=== PATIENT | female | born 1955 | race Caucasian/White ===

== ENCOUNTER → 2021-01-31 | Outpatient (CLI) | payer MEDICARE, OTHER ==
[~2021-01-31] MED LIST: CITA40TA17 PO; LANTUS SQ; METF-438 PO; SIMV-45 PO
== END | disposition home or self-care (01) ==
LOC: CARD DIAG 09:05
PROVIDERS: ATTEND Nurse Practitioner
DX: I34.8 Other nonrheumatic mitral valve disorders (principal); Z82.49 Family history of ischemic heart disease and other diseases of the circulatory system
CPT/HCPCS: 93306

== ENCOUNTER 2023-03-13 09:58 | Emergency (ER) | payer MEDICARE, OTHER ==
[~2023-03-13] VITALS: Ht 160 cm; Wt 107.6 kg
[2023-03-13] MEDS ORDERED: oxyCODONE/APAP 5-325mg tablet PO ONE (13:20)
[2023-03-13] MEDS ORDERED: OXYC-145 PO (14:46)
[2023-03-13 15:10] VITALS: BP 155/84; PULSE 88; RESP 16; TEMP 97.8; O2SAT 97
== END 2023-03-13 15:00 | disposition home or self-care (01) ==
LOC: ER 09:59
DX: M25.561 Pain in right knee (principal); E11.9 Type 2 diabetes mellitus without complications; Z79.899 Other long term (current) drug therapy; Z79.84 Long term (current) use of oral hypoglycemic drugs; Z98.890 Other specified postprocedural states
CPT/HCPCS: 73564; 99283

== ENCOUNTER 2024-09-23 09:50 | Emergency (ER) | payer MEDICARE ==
[~2024-09-23] VITALS: Ht 160 cm; Wt 82.2 kg
[~2024-09-23 09:50] MED LIST changes: +OXYC-145 PO
[2024-09-23 09:52] VITALS: TEMP 97.6
--- NOTE | 2024-09-23 09:59 | Physician Documentation ---
History of Present Illness Chief Complaint: Abdominal Pain Stated Complaint: ABD PAIN Primary Medical Doctor: DR. BREEN HPI 68-year-old female presents to the ED with a complaint of midepigastric pain for the last month. Addition she complains of left-sided chest pain for one week. She denies any shortness of breath nausea vomiting or any radiating chest Day of Onset: Sep 23, 2024 Medication Reconciliation Allergies: Coded Allergies: No Known Allergies (Unverified , 03/13/23) Scheduled Citalopram Hydrobromide (Citalopram HBr), 1 TAB PO DAILY, (Reported) Insulin Glargine,Hum.rec.anlog (Lantus Solostar), 50 UNITS SQ HS, (Reported) Metformin HCl (Metformin HCl), 1 TAB PO HS, (Reported) Simvastatin (Simvastatin), 1 TAB PO HS, (Reported) Scheduled PRN Oxycodone HCl/Acetaminophen (Percocet 5-325 mg Tablet), 1 TAB PO TID PRN PRN for knee pain Past Medical History Past Medical History: Diabetes Past Surgical History: appendectomy Patient History: (CABG) Coronary artery bypass grafting FATHER, , Age: 60 years and older (CHF) Congestive heart failure FATHER, , Age: 60 years and older (DM Type1) Diabetes mellitus type 1 MOTHER, , Age: 62, Not a twin Alcohol Use: None Lives In: Home Review of Systems All Other Systems at this time: Reviewed and Negative Physical Exam Vital Signs: Temperature: 97.6, Source: Temporal, Heart Rate: 94, Respiratory Rate: 15, BP: 176/80, Pulse Oximetry: 99, Weight: 82.150 Physical Exam General: Alert, no apparent distress. HEENT: PERRL, EOMI, no injection, moist mucous membranes. Neck: Full range of motion. Respiratory: Lungs clear, no respiratory distress. Chest: No accessory muscle use. Cardiovascular: Regular rate and rhythm, no murmurs. Gastrointestinal: Soft, nontender, nondistended. Bowels sounds present. Extremities: Normal range of motion, no deformity. Neurologic: Oriented x4. Psychiatric: Normal mood and affect. Skin: Normal color, warm and dry. No edema, no ecchymosis. Medical Decision Making Findings 68 year old female with nonspecific chest and abdominal pain but unremarkable exam. Workup similarly unremarkable other than for mild hypokalemia, including CT abdomen/pelvis which did not demonstrate acute findings that would explain her pain. Counseled, reassured, discharged with return precautions. Differential Dx:Considerations: Include: Angina/RI, Aortic dissection, Appendicitis, Bowel obstruction, Cholangitis, Cholelithasis, Esophagitis, Gastritis/PUD, GI hemorrhage, Hernia, Hepatitis, Inflammatory BD, Ischemic bowel , Pancreatitis, Urinary tract infection Departure Disposition: HOME / SELF CARE / HOMELESS Impression: Primary Impression: Abdominal pain Referrals: NO PRIMARY CARE PROVIDER (PCP) Education Educated: Patient Educated regarding: diagnosis, treatment, prognosis, need for follow up Signature Scribe Signature: . Attestation: . REECE SNOWDEN NP Sep 23, 2024 09:59 ARIANA BOATENG MD Sep 23, 2024 13:40
--- NOTE | 2024-09-23 10:08 | ELECTROCARDIOGRAPH REPORT ---
[facility] Test Date: 2024-09-23 Test Time: 10:00:21 Pat Name: ZE ARCHER Department: EMERGENCY ROOM Room: Gender: F Problem Manager: JASMINA : 1955 Requested By: ARIANA BOATENG Order Number: [id number] Reading MD: Measurements Intervals [place] Rate: 79 P: -62 MI: 189 QRS: -23 QRSD: 88 T: 109 QT: 380 QTc: 436 Interpretive Statements Sinus or ectopic atrial rhythm Low voltage, precordial leads LVH with secondary repolarization abnormality Anterior Q waves, possibly due to LVH Please click the below link to view image of tracing.
[2024-09-23 10:16] LABS: MEAN PLATELET VOLUME 6.7 FL (7.4-10.4); RED CELL DISTRIBUTION WIDTH 13.0 % (11.5-14.5)
[2024-09-23 10:26] LABS: CREATININE 0.63 MG/DL (0.40-0.90); TOTAL CARBON DIOXIDE 29.2 MMOL/L (24-32); eCRCL 71 ML/MIN; eGFR > 90 ML/MIN
[2024-09-23] MEDS ORDERED: iohexol 300mg/ml 100ml inj. ONE (11:57)
[2024-09-23] MEDS: POTASSIUM CHLORIDE 20 MEQ/15 ML oral solution PO SCH (11:59)
[2024-09-23 12:33] LABS: LEUKOCYTE ESTERASE ,URINE TRACE (Neg); NITRITES, URINE NEGATIVE (Neg); OCCULT BLOOD,URINE NEGATIVE (Neg)
[2024-09-23 12:35] LABS: UA COLLECTION TYPE CLN CATCH MIDSTREAM
[2024-09-23 12:39] LABS: RENAL CELLS, URINE FEW /HPF; SQUAMOUS EPITHELIAL CELL,UR MODERATE /LPF (FEW)
--- NOTE | 2024-09-23 12:55 | RADIOLOGY REPORT ---
Exam: CT CT ABDOMEN PELVIS W/ IV CONTRAST History: abdominal pain COMPARISON: None Technique: Multidetector spiral CT of the abdomen and pelvis was performed from lung bases to pubic symphysis. Intravenous contrast was administered during this examination. Portal venous imaging was obtained. Axial, coronal and sagittal multiplanar reformats were performed by the technologist on a separate workstation. Radiation Dose : Abdomen/Pelvis: CTDIvol 33 mGy, DLP 1779 mGy*cm. CONTRAST: Type of contrast: Omni 300 Contrast injected: 100 mL Findings: Lung Bases: No acute or significant lung base finding. Normal heart size. No pleural or pericardial effusion. Liver: The liver is normal in size. No focal lesions. Normal hepatic vascular enhancement. Gallbladder and biliary Tree: Gallbladder is surgically absent. Spleen: Unremarkable Pancreas: The pancreas is normal in appearance without focal lesions or abnormal enhancement. Adrenal Glands: Unremarkable Kidneys: No hydronephrosis. Right renal cyst. Bladder: Unremarkable Bowel: The stomach is grossly normal in appearance. Small bowel and colon are normal in caliber and d istribution. The appendix is not visualized; however, no secondary findings of acute appendicitis jb ntified. Sigmoid diverticulosis. Ascites: Absent Lymphadenopathy: No mesenteric, retroperitoneal or periportal lymphadenopathy. Abdominal wall and Mesentery: Unremarkable. Vasculature: The visualized abdominal aorta is normal in size and caliber. There is calcified atheros clerotic plaque involving the aorta and its branches. Abdominal and pelvic vessels demonstrate normal enhancement. Pelvic Organs: Unremarkable Musculoskeletal: No aggressive focal bony lesions, acute fractures or dislocation. IMPRESSION: 1. No acute abdominal or pelvic finding. Right renal cysts. Sigmoid diverticulosis. Calcified athero sclerotic disease. Radiation optimization: All CT scans at this facility use at least one of these dose optimization sang hniques: Automated exposure control mA and/or kV adjustment per patient size (includes targeted exams where dose is matched to clinical indication) or iterative reconstruction. HS:Y
[2024-09-23 14:01] VITALS: BP 138/63; PULSE 73; RESP 18; O2SAT 98
== END 2024-09-23 14:03 | disposition home or self-care (01) ==
LOC: ER 09:51
DX: R10.13 Epigastric pain (principal); E11.9 Type 2 diabetes mellitus without complications; I50.9 Heart failure, unspecified; Z79.4 Long term (current) use of insulin; Z90.49 Acquired absence of other specified parts of digestive tract; Z79.899 Other long term (current) drug therapy; Z95.1 Presence of aortocoronary bypass graft
CPT/HCPCS: 36415; 74177; 80053; 81001; 83690; 84484; 85025; 87077; 87088; 87186; 93005; 99285; Q9967